=== PATIENT | female | born 1960 | race Caucasian/White ===

== ENCOUNTER 2017-10-20 09:52 | Day surgery (SDC) | payer OTHER ==
[2017-10-15 16:21] VITALS: BMI 30.2
[2017-10-20] MEDS ORDERED: PROPOFOL 20 ML ONE ×2 (10:43→11:22)
[2017-10-20 12:09] VITALS: TEMP 97.6
[2017-10-20 12:28] VITALS: BP 132/78; PULSE 74
--- NOTE | 2017-10-24 19:22 | PATH ---
Surgical Pathology Report Patient Name: DEANNA KINNEY [facility]. Rec. #: [id number] /Age/Gender: 1960 (Age: 56) / F Account: [id number] Location: [facility]OS[facility] Taken: 10/20/2017 Received: 10/20/2017 Reported: 10/24/2017 Physicians: Terri Sandoval M.D. Specimen(s) Received A: BX SECOND PORTION DUODENUM B: BX ANTRUM C: GE JUNCTION Clinical History Abdominal pain Postoperative diagnosis: Gastritis Final Diagnosis A. SECOND PORTION OF DUODENUM, BIOPSY: DUODENAL MUCOSA WITH NO PATHOLOGIC FINDINGS. B. ANTRUM, BIOPSY: MODERATE CHRONIC ACTIVE GASTRITIS. IMMUNOSTAIN SHOWS NUMEROUS H. PYLORI ORGANISMS. C. GE JUNCTION, BIOPSY: GASTRIC CARDIA-TYPE MUCOSA SHOWING MILD CHRONIC INFLAMMATION. NO ESOPHAGEAL (SQUAMOUS) MUCOSA IS IDENTIFIED. NEGATIVE FOR INTESTINAL METAPLASIA. Electronically Signed Jolene Way M.D. Gross Description A. Received in formalin, labeled "biopsy second portion of duodenum" are 2 irvin, irregular portions of soft tissue averaging 0.3 cm. in greatest dimension. The specimens are submitted in toto in one cassette. B. Received in formalin, labeled "antrum" are 2 irvin, irregular portions of soft tissue measuring 0.1 and 0.4 cm. in greatest dimension. The specimens are submitted in toto in one cassette. C. Received in formalin, labeled "biopsy GE junction" is a irvin, irregular portion of soft tissue measuring 0.5 cm. in greatest dimension. The specimen is submitted in toto in one cassette. 10/21/2017 saudi10/21/2017
== END 2017-10-20 12:45 | disposition home or self-care (01) ==
LOC: FASU-ENDO 09:52
PROVIDERS: ATTEND Internal Medicine Gastroenterology
PROC: 0DB68ZX Excision of Stomach, Via Natural or Artificial Opening Endoscopic, Diagnostic (ICD-10-PCS; 2017-10-20)
PROC: 0DB38ZX Excision of Lower Esophagus, Via Natural or Artificial Opening Endoscopic, Diagnostic (ICD-10-PCS; 2017-10-20)
PROC: 0DB98ZX Excision of Duodenum, Via Natural or Artificial Opening Endoscopic, Diagnostic (ICD-10-PCS; principal; 2017-10-20 11:33)
DX: K29.50 Unspecified chronic gastritis without bleeding (principal); R10.9 Unspecified abdominal pain; B96.81 Helicobacter pylori [H. pylori] as the cause of diseases classified elsewhere; K20.9 Esophagitis, unspecified
CPT/HCPCS: 88305-TC; 88342-TC

== ENCOUNTER 2022-03-10 09:02 | Day surgery (SDC) | payer OTHER ==
[2022-03-09 15:48] VITALS: BMI 28.8
[2022-03-10 10:23] VITALS: PULSE 69; RESP 18; TEMP 97.7
[2022-03-10] MEDS ORDERED: LIDOCAINE HCL/PF 2% SDV 5ML VIAL ONE (11:56)
[2022-03-10] MEDS ORDERED: PROPOFOL 80 ML ONE (11:56)
[2022-03-10 12:44] VITALS: BP 110/68
== END 2022-03-10 12:53 | disposition home or self-care (01) ==
LOC: FASU-ENDO 09:02
PROVIDERS: ATTEND Internal Medicine Gastroenterology
PROC: 0DB68ZX Excision of Stomach, Via Natural or Artificial Opening Endoscopic, Diagnostic (ICD-10-PCS; 2022-03-10)
PROC: 0DB48ZX Excision of Esophagogastric Junction, Via Natural or Artificial Opening Endoscopic, Diagnostic (ICD-10-PCS; 2022-03-10)
PROC: 0DB98ZX Excision of Duodenum, Via Natural or Artificial Opening Endoscopic, Diagnostic (ICD-10-PCS; principal; 2022-03-10 11:54)
DX: K29.50 Unspecified chronic gastritis without bleeding (principal); K20.90 Esophagitis, unspecified without bleeding; B96.81 Helicobacter pylori [H. pylori] as the cause of diseases classified elsewhere; R10.13 Epigastric pain
CPT/HCPCS: 88305-TC; 88342-TC